=== PATIENT | female | born 1960 | race Caucasian/White ===

== ENCOUNTER 2019-06-16 00:42 | Inpatient (IN) ==
--- NOTE | 2019-06-03 17:44 | EKG Report ---
Test Performed on : 06/03/2019 5:23:53 PM Test Reason : PAT Blood Pressure : / mmHG Vent. Rate : 086 BPM Atrial Rate : 086 BPM P-R Int : 154 ms QRS Dur : 084 ms QT Int : 350 ms P-R-T Axes : 058 027 051 degrees QTc Int : 418 ms Normal sinus rhythm. Low voltage QRS Borderline ECG No previous ECGs available Confirmed by Matthew Ogden MD ([id number]) on 06/08/2019 8:30:58 AM
[2019-06-03 17:50] LABS: URINE SOURCE CLEAN CATCH
[2019-06-03 17:54] LABS: BASO# 0.02 X1000 (0.0-0.2); BASO% 0.3 % (0.0-0.8); EOS# 0.17 X1000 (0.0-0.7); EOS% 2.7 % (0.0-10.0); HEMATOCRIT 39.4 % (37.0-47.0); HEMOGLOBIN 13.1 g/dL (12.0-16.0); LYMPH# 2.38 X1000 (1.2-3.4); LYMPH% 38.1 % (20.5-51.1); MCH 29.4 PG (27-31); MCHC 33.2 g/dL (33-37); MCV 88.5 FL (81-99); MONO# 0.35 X1000 (0.11-0.59); MONO% 5.6 % (1.7-9.3); MPV 10.2 FL (7.4-10.4); NEUT# 3.33 X1000 (1.4-6.5); NEUT% 53.3 % (42.2-75.2); PLT 288 X1000 (130-400); RBC 4.45 XMIL (4.2-5.4); RDW 13.5 % (11.5-14.5); WBC 6.25 X1000 (4.8-10.8)
[2019-06-03 18:03] LABS: INR 0.97
[2019-06-03 18:04] LABS: PTT 28.3 Seconds (22.3-41.8)
[2019-06-03 18:06] LABS: HEMOGLOBIN A1C 5.6 % (4.8-6.0)
[2019-06-03 18:09] LABS: BILIRUBIN URINE NEGATIVE (NEGATIVE); COLOR YELLOW; GLUCOSE URINE NEGATIVE (NEGATIVE); KETONE URINE NEGATIVE (NEGATIVE); LEUKOCYTES URINE NEGATIVE (NEGATIVE); NITRITE URINE NEGATIVE (NEGATIVE); PH URINE 5.5; PROTEIN URINE NEGATIVE (NEGATIVE); SP GRAVITY URINE 1.026; UROBILINOGEN URINE NORMAL (NORMAL)
[2019-06-03 18:11] LABS: AGAP 10; BUN 25 mg/dL (8-22); CALCIUM 9.9 mg/dL (8.8-10.2); CHLORIDE 102 mmol/L (98-107); COSMO 281; CREATININE 0.7 mg/dL (0.5-0.9); ESTIMATED GFR > 60; GLUCOSE 89 mg/dL (70-104); POTASSIUM 3.9 mmol/L (3.5-5.1); SODIUM 139 mmol/L (136-145); TCO2 27 mmol/L (25-35)
[2019-06-03 19:09] LABS: BLOOD URINE NEGATIVE (NEGATIVE); TURBIDITY URINE HAZY (CLEAR)
[2019-06-03 19:28] LABS: UR EPITHELIAL CELLS <10 /HPF (<10); URINE BACTERIA NEGATIVE /HPF; URINE RBC <10 /HPF (<10); URINE WBC <10 /HPF (<10)
[2019-06-03 19:32] LABS: URINE CRYSTALS CA OXALATE PRESENT
[2019-06-16] MEDS ORDERED: VERSED ONE ×2 (08:14→10:30)
[2019-06-16] MEDS ORDERED: XYLOCAINE-MPF 2% ONE (08:15)
[2019-06-16] MEDS ORDERED: ROBINUL ONE (08:15)
[2019-06-16] MEDS ORDERED: FENTANYL ONE (08:15)
[2019-06-16] MEDS ORDERED: PHENERGAN ONE (08:15)
[2019-06-16] MEDS ORDERED: DIPRIVAN 1% ONE (08:15)
[2019-06-16] MEDS ORDERED: CELEBREX ONE (08:39)
[2019-06-16] MEDS ORDERED: LYRICA ONE (08:39)
[2019-06-16] MEDS ORDERED: REGLAN ONE (08:39)
[2019-06-16] MEDS ORDERED: PEPCID ONE (08:39)
[2019-06-16] MEDS ORDERED: COLACE ONE (08:39)
[2019-06-16] MEDS ORDERED: LR 1,000 ML ONE (08:40)
[2019-06-16] MEDS ORDERED: KEFZOL 1 GM/D5W 2 GM/100 ML IVPB ONE (08:40)
[2019-06-16] MEDS ORDERED: DURAMORPH ONE (09:42)
[2019-06-16] MEDS ORDERED: MARCAINE 0.25% PF ONE (09:42)
[2019-06-16] MEDS ORDERED: TORADOL ONE ×2 (09:42→10:13)
[2019-06-16] MEDS ORDERED: SODIUM CHLORIDE 0.9% ONE (09:42)
[2019-06-16] MEDS ORDERED: CYKLOKAPRON 1,000 MG/NS 1,000 MG/100 ML IVPB ONE (09:42)
[2019-06-16] MEDS ORDERED: NEOSPORIN G.U. IRRIGANT ONE (09:43)
[2019-06-16] MEDS ORDERED: EXPAREL 1.3% ONE (09:43)
[2019-06-16] MEDS ORDERED: DECADRON ONE (10:13)
[2019-06-16] MEDS ORDERED: ZOFRAN ONE (10:13)
[2019-06-16] MEDS ORDERED: OFIRMEV 1000 MG/ISOTONIC SOLN 1,000 MG/100 ML BOTTLE ONE (10:13)
[2019-06-16 11:43] LABS: URINE SOURCE CATH
[2019-06-16 11:49] LABS: BILIRUBIN URINE NEGATIVE (NEGATIVE); BLOOD URINE NEGATIVE (NEGATIVE); COLOR STRAW; GLUCOSE URINE NEGATIVE (NEGATIVE); KETONE URINE NEGATIVE (NEGATIVE); LEUKOCYTES URINE NEGATIVE (NEGATIVE); NITRITE URINE NEGATIVE (NEGATIVE); PH URINE 6.5; PROTEIN URINE NEGATIVE (NEGATIVE); SP GRAVITY URINE 1.009; TURBIDITY URINE CLEAR (CLEAR); UROBILINOGEN URINE NORMAL (NORMAL)
[2019-06-16 11:53] LABS: UR EPITHELIAL CELLS <10 /HPF (<10); URINE BACTERIA NEGATIVE /HPF; URINE RBC <10 /HPF (<10); URINE WBC <10 /HPF (<10)
[2019-06-16] MEDS ORDERED: NS 1,000 ML ONE (12:14)
[2019-06-16] MEDS: ZOFRAN ONE ×2 (12:46→14:15)
[2019-06-16] MEDS ORDERED: ZOFRAN ODT PO PRN (13:30)
[2019-06-16] MEDS ORDERED: MORPHINE IV PRN ×3 (13:30)
[2019-06-16] MEDS ORDERED: OXY IR PO PRN ×2 (13:30)
[2019-06-16] MEDS ORDERED: ZOFRAN IV PRN (13:30)
--- NOTE | 2019-06-16 14:04 | OPERATIVE NOTE ---
PROCEDURE DATE: 06/16/2019 PREOPERATIVE DIAGNOSIS: Degenerative joint disease right hip. POSTOPERATIVE DIAGNOSIS: Degenerative joint disease right hip. PROCEDURE: Right anterior hip replacement. SURGEON: Arthur Jasmine MD ANESTHESIA: Spinal. COMPLICATION: None. SYSTEMS INTEGRATION MANAGER: HAN Rush Mr. Gutierrez was necessary for proper retraction and manipulation of the leg during the case. PROCEDURE IN DETAIL: A 59-year-old female presents for a right anterior hip replacement. Risks, benefits, and no guarantees were discussed and she is willing to proceed. She was taken to the operating room and satisfactory anesthesia obtained. The right hip was prepped and draped in usual sterile fashion. A time-out was taken to confirm operative site, procedure, and patient. With the patient on the [place] table, an anterior approach to the right hip was undertaken. This incision was started 1 cm distal and lateral to the anterior superior iliac spine. This was carried 10 to 12 cm and dissection carried down through the skin and subcutaneous fat. The fascia of the tensor fascia ritu was split in line with the incision and blunt dissection undertaken along the inner membrane down to the anterior hip capsule. Cobra retractors were placed over the superior and inferior aspect of the femoral neck and a femoral neck capsulotomy made. Prior to osteotomy, an AP pelvis was used on the fluoroscopic imaging to reference leg lengths on both sides. Femoral neck osteotomy was made roughly 8-10 mm above the lesser trochanter and the femoral head removed. A small Cobra retractor was carefully placed directly on the anterior acetabular bone to protect the femoral nerve and neurovascular structures anteriorly. The reamers were then utilized to ream up to a 51 mm diameter reamer. A [employer] CABRERA coated 52 outer diameter cup was then impacted in the acetabulum in roughly 45 degrees of abduction and 10 to 15 degrees of anteversion. This had secure press-fit fixation. A 25 length screw was placed in the cup for additional security, followed by a 36 mm 0 degree inner diameter polyethylene bearing. The bearing liner interface and liner bone interface was checked and noted to be stable. Traction was released off the leg and the hip extended and externally rotated using the [place] table to facilitate broaching of the proximal femur. Sequential broaching of the proximal femur with an active stem was undertaken up to a size 2 implant. A high offset geometry collar was chosen with an 8.5 neck length to best reduce and stabilize and restore leg lengths about the hip. After adequate trialing, the trial stem was removed and a size 2 Actis high offset stem impacted into the proximal femur with secure axial and rotational stability. The 36 mm ceramic head ball with an 8.5 neck taper was impacted onto this and the hip reduced. No posterior instability was noted by flexing the hip and internally rotating. No anterior instability was noted by extending the hip to the floor with roughly 80 degrees of external rotation. The C-arm was used to verify accurate hardware placement as well as christianity of leg lengths. The wound was copiously irrigated with irrigant. A Hemovac drain was placed and brought out through the lateral thigh. Exparel was used in the capsule and skin for pain management. The wound was then copiously irrigated with irrigant. It was then closed over the drain with a running V-Loc suture and the fascia of the tensor, 2-0 Vicryl in the subcutaneous and skin janine on the skin edges. Sterile dressings were applied and the patient recovered from anesthesia and transferred to recovery room in stable condition. No intraoperative complications were noted. Instrument count and sponge count was correct at the time of closure. cc: Rogelio Jasmine MD
[2019-06-16] MEDS: TYLENOL PO SCH ×2 (14:14→20:02)
[2019-06-16] MEDS: ULTRAM PO SCH ×2 (14:14→20:01)
--- NOTE | 2019-06-16 15:24 | ORTHOPAEDICS PROGRESS NOTE ---
DATE: 06/16/2019 SUBJECTIVE: Ms. Gimenez is seen status post total hip replacement. She is comfortable at the present time. OBJECTIVE: Her bandages are clean and dry. She is motor and sensory intact with good femoral nerve function as well as sciatic nerve function. She is able to extend the knee and flex the knee as well as extend dorsally and plantar flex the toes and ankle. She is to be mobilized later. PLAN: We will plan on discharging her home when she is mobilizing well. cc: Rogelio Jasmine MD
[2019-06-16] MEDS: NS 1,000 ML IV SCH (17:28)
[2019-06-16] MEDS: PERIDEX MT SCH (19:59)
[2019-06-16] MEDS: KEFZOL 2 GM/D5W 2 GM/50 ML IVPB IV SCH (19:59)
[2019-06-16] MEDS: CELEBREX PO SCH (20:01)
[2019-06-16] MEDS: COLACE PO SCH (20:01)
[2019-06-17] MEDS: NS 1,000 ML IV SCH (03:22)
[2019-06-17] MEDS: KEFZOL 2 GM/D5W 2 GM/50 ML IVPB IV SCH (03:22)
[2019-06-17] MEDS: ULTRAM PO SCH ×3 (03:22→10:03)
[2019-06-17] MEDS: TYLENOL PO SCH ×3 (03:24→10:03)
[2019-06-17 05:48] LABS: HEMATOCRIT 30.1 % (37.0-47.0)
[2019-06-17 06:10] LABS: AGAP 12; BUN 12 mg/dL (8-22); CALCIUM 8.7 mg/dL (8.8-10.2); CHLORIDE 106 mmol/L (98-107); COSMO 280; CREATININE 0.6 mg/dL (0.5-0.9); ESTIMATED GFR > 60; GLUCOSE 139 mg/dL (70-104); POTASSIUM 4.3 mmol/L (3.5-5.1); SODIUM 139 mmol/L (136-145); TCO2 21 mmol/L (25-35)
--- NOTE | 2019-06-17 07:53 | ORTHOPAEDICS PROGRESS NOTE ---
DATE: 06/17/2019 Ms. Gimenez is doing well today. Her vital signs are stable. There are no signs of active bleeding or complication from her hip wound. She appears to be motor and sensory intact. She will be mobilized today. She can be discharged home after mobilized. She is to continue with her home medicines including [place] as needed for pain, aspirin for DVT prophylaxis, and Bactrim for wound prophylaxis. We will follow up with her in roughly 10 to 12 days for staple removal. She is to return to our office for any worsening signs or symptoms in the interim. cc: Rogelio Jasmine MD
[2019-06-17 08:12] VITALS: BP 119/49
[2019-06-17] MEDS: PERIDEX MT SCH (08:36)
[2019-06-17] MEDS: CELEBREX PO SCH (08:37)
[2019-06-17] MEDS: COLACE PO SCH (08:37)
[2019-06-17] MEDS ORDERED: PEPCID PO SCH (09:00)
[2019-06-17] MEDS ORDERED: ASPIRIN PO SCH (09:00)
== END 2019-06-17 12:34 | disposition home health service (06) | DRG 470 ==
LOC: SURHOLD 00:42 → 4N 09:54
PROVIDERS: ADMIT Orthopaedic Surgery Adult Reconstructive Orthopaedic Surgery; ATTEND Orthopaedic Surgery Adult Reconstructive Orthopaedic Surgery